=== PATIENT | male | born 1980 | race Caucasian/White ===

== ENCOUNTER 2022-12-05 18:41 | Emergency (ER) | payer MEDICAID, SELFPAY ==
[2022-12-05 18:42] VITALS: BP 172/95; PULSE 55; RESP 19; TEMP 36.6; O2SAT 100; BMI 39.2
[2022-12-05] MEDS: fentaNYL 100 MCG/2 ML Ampul IV (19:00)
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
[2022-12-05 19:05] VITALS: BP 172/95; PULSE 54; RESP 14; O2SAT 100
--- NOTE | 2022-12-05 19:05 | ED.RN ---
MOTHER, CELSO SALCIDO UPDATED PER PT REQUEST.
== END 2022-12-05 19:15 | disposition short-term general hospital (02) ==
PROVIDERS: Emergency Provider Emergency Medicine; Visit Provider Emergency Medicine
DX: S72.91XB Unspecified fracture of right femur, initial encounter for open fracture type I or II (principal); V23.49XA Other motorcycle driver injured in collision with car, pick-up truck or van in traffic accident, initial encounter; Y92.410 Unspecified street and highway as the place of occurrence of the external cause
CPT/HCPCS: 99285; A4216